=== PATIENT | male | born 1950 | race Caucasian/White ===

== ENCOUNTER 2024-01-17 16:17 | Emergency (ER) | payer OTHER ==
[~2024-01-17] VITALS: Ht 180.3 cm; Wt 77.9 kg
[2024-01-17 16:19] VITALS: TEMP 98.2
[2024-01-17 20:23] VITALS: BP 158/79; O2SAT 100
== END 2024-01-17 20:26 | disposition home or self-care (01) ==
LOC: M ED 16:17
DX: Z18.9 Retained foreign body fragments, unspecified material (principal); S90.852A Superficial foreign body, left foot, initial encounter; X58.XXXA Exposure to other specified factors, initial encounter; Y92.009 Unspecified place in unspecified non-institutional (private) residence as the place of occurrence of the external cause; Y93.9 Activity, unspecified; Y99.9 Unspecified external cause status; Z88.8 Allergy status to other drugs, medicaments and biological substances